=== PATIENT | female | born 1980 | race African-American/Black ===

== ENCOUNTER 2018-04-30 22:47 | Emergency (ER) | payer MEDICAID ==
[~2018-04-30] VITALS: Ht 172.7 cm; Wt 93.9 kg
[~2018-04-30 22:47] MED LIST: BACL0.13 PO; GLIM4TAB42 OR; JANUVIA PO; OMEP20TA44; TRAMADOL PO
[2018-04-30 23:06] VITALS: BP 135/87
[2018-05-01 01:25] LABS: Mean Corpuscular Hgb Conc. 33.9 g/dL (32.0-36.0); Monocytes # (auto) 0.8 uL
[2018-05-01 01:27] LABS: Basophils # (auto) 0.2 uL; Basophils % (auto) 0.9 % (0.0-2.0); Eosinophils # (auto) 0.3 uL; Eosinophils % (auto) 1.5 % (0.0-7.0); Hematocrit 48.3 % (36.0-46.0); Hemoglobin 16.4 g/dL (12.2-16.2); Lymphocytes # (auto) 5.2 uL; Lymphocytes % (auto) 30.1 % (10.0-50.0); Mean Corpuscular Volume 79.7 fL (80.0-100.0); Monocytes % (auto) 4.8 % (0.0-12.0); Neutrophils # (auto) 10.7 uL; Neutrophils % (auto) 62.7 % (37.0-80.0); Platelet Count (auto) 326 10^3/uL (140-450); Red Blood Cells 6.06 10^6/uL (4.0-5.20); White Blood Cell 17.1 10^3/uL (4.4-10.8)
[2018-05-01 01:42] LABS: Albumin 3.8 g/dL (3.4-5.0); BUN/Creatinine Ratio 8.1; Calcium 9.2 mg/dL (8.5-10.1)
[2018-05-01 01:46] LABS: Bilirubin, Total 0.7 mg/dL (0.2-1.0); Total Protein 8.3 g/dL (6.4-8.2)
== END 2018-05-01 04:18 | disposition left against medical advice (07) ==
LOC: ER 22:47
DX: L02.31 Cutaneous abscess of buttock (principal); Z53.21 Procedure and treatment not carried out due to patient leaving prior to being seen by health care provider
CPT/HCPCS: 36415; 80053; 85025

== ENCOUNTER 2019-12-04 22:05 | Emergency (ER) | payer MEDICAID ==
[~2019-12-04] VITALS: Ht 172.7 cm; Wt 78.9 kg
[2019-12-04 22:47] VITALS: BP 132/87
[2019-12-04 23:23] LABS: Basophils # (auto) 0.1 10 ^3/uL (0-0.2); Eosinophils # (auto) 0.2 10 ^3/uL (0-0.8); Eosinophils % (auto) 1.6 % (0.0-7.0); Lymphocytes % (auto) 41.6 % (10.0-50.0); Nucleated Red Blood Cells % 0.1 %
[2019-12-04 23:24] LABS: Basophils % (auto) 0.9 % (0.0-2.0); Hematocrit 42.8 % (36.0-46.0); Hemoglobin 14.9 g/dL (12.2-16.2); Lymphocytes # (auto) 5.3 10 ^3/uL (0.4-5.4); Mean Corpuscular Hemoglobin 27.4 pg (28.0-32.0); Mean Corpuscular Hgb Conc. 34.7 g/dL (32.0-36.0); Monocytes # (auto) 0.5 10 ^3/uL (0-1.3); Monocytes % (auto) 4.1 % (0.0-12.0); Neutrophils # (auto) 6.6 10 ^3/uL (1.6-8.6); Neutrophils % (auto) 51.8 % (37.0-80.0); Platelet Count (auto) 326 10^3/uL (140-450); Red Blood Cells 5.42 10^6/uL (4.0-5.20); Red Cell Distribution Width 14.9 % (11.8-14.3); White Blood Cell 12.7 10^3/uL (4.4-10.8)
[2019-12-04 23:41] LABS: Albumin 3.4 g/dL (3.4-5.0); Anion Gap 9 (5-15); Blood Urea Nitrogen 6 mg/dL (7-18); Calcium 8.8 mg/dL (8.5-10.1); Carbon Dioxide 22 mmol/L (21-32); Chloride 107 mmol/L (98-107); Glucose 251 mg/dL (74-106); Potassium 3.6 mmol/L (3.5-5.1); Sodium 138 mmol/L (136-145)
[2019-12-04 23:47] LABS: Alanine Aminotransferase 33 U/L (13-56); Alkaline Phosphatase 98 U/L (45-117); Aspartate Aminotransferase 25 U/L (15-37); BUN/Creatinine Ratio 8.3; Bilirubin, Total 0.4 mg/dL (0.2-1.0); GFR African American 117 mL/min; GFR Non-African American 96 mL/min; Total Protein 7.3 g/dL (6.4-8.2)
== END 2019-12-05 00:03 | disposition left against medical advice (07) ==
LOC: EDBD 22:05 → ER 22:09
DX: R55 Syncope and collapse (principal); Z53.21 Procedure and treatment not carried out due to patient leaving prior to being seen by health care provider
CPT/HCPCS: 36415; 80053; 83880; 84484; 85025; 93005

== ENCOUNTER → 2019-12-14 | Emergency (ER) | payer MEDICAID ==
[~2019-12-14] VITALS: Ht 172.7 cm; Wt 65.8 kg
[~2019-12-14] MED LIST changes: +ACCU-CHEK COMFORT CURVE STRIP VI SCH; +ACETAMINOPHEN 325 MG TAB PO PRN; +ALBUMIN 5% 250 ML IV ONE; +DEXTROSE (50%) 50ML SYRG IV PRN; +FAMOTIDINE 20 MG TAB PO SCH; +HYDROcodone-ACET 5/325MG TAB PO PRN; +InsuLIN REG 1unit/0.01ml Soln (100units/ml) SC SCH; +MORPHINE SULF INJ 2 MG/ML SYRINGE 1ML IV ONE; +MORPHINE SULF INJ 2 MG/ML SYRINGE 1ML IV PRN; +NITROGLYCERIN 0.4 MG SL TAB SL PRN; +ONDANSETRON HCL 4 MG/2 ML VIAL IV ONE; +ONDANSETRON HCL 4 MG/2 ML VIAL IV PRN; +SODIUM CHLORIDE 0.9% 1,000 ML IV SCH; +SODIUM CHLORIDE 0.9% 1,000 ML IVB ONE; +TEMAZEPAM 15 MG CAP PO PRN
[2019-12-14 16:42] LABS: Basophils # (auto) 0.1 10 ^3/uL (0-0.2); Basophils % (auto) 0.8 % (0.0-2.0); Hemoglobin 14.8 g/dL (12.2-16.2); Lymphocytes # (auto) 4.1 10 ^3/uL (0.4-5.4); Monocytes # (auto) 0.6 10 ^3/uL (0-1.3); Neutrophils # (auto) 7.4 10 ^3/uL (1.6-8.6); Nucleated Red Blood Cells % 0.1 %
[2019-12-14 16:44] LABS: Eosinophils # (auto) 0.2 10 ^3/uL (0-0.8); Eosinophils % (auto) 1.4 % (0.0-7.0); Hematocrit 44.6 % (36.0-46.0); Mean Corpuscular Hemoglobin 26.2 pg (28.0-32.0); Mean Corpuscular Hgb Conc. 33.3 g/dL (32.0-36.0); Mean Corpuscular Volume 78.7 fL (80.0-100.0); Monocytes % (auto) 5.1 % (0.0-12.0); Neutrophils % (auto) 59.7 % (37.0-80.0); Platelet Count (auto) 337 10^3/uL (140-450); Red Blood Cells 5.67 10^6/uL (4.0-5.20); Red Cell Distribution Width 14.7 % (11.8-14.3); White Blood Cell 12.5 10^3/uL (4.4-10.8)
[2019-12-14 17:05] LABS: Alanine Aminotransferase 46 U/L (13-56); Albumin 3.2 g/dL (3.4-5.0); Anion Gap 12 (5-15); Aspartate Aminotransferase 36 U/L (15-37); BUN/Creatinine Ratio 14.1; Blood Urea Nitrogen 9 mg/dL (7-18); Calcium 8.8 mg/dL (8.5-10.1); Carbon Dioxide 19 mmol/L (21-32); Chloride 104 mmol/L (98-107); GFR African American 134 mL/min; GFR Non-African American 110 mL/min; Glucose 203 mg/dL (74-106); Sodium 135 mmol/L (136-145)
[2019-12-14 17:10] LABS: Alkaline Phosphatase 100 U/L (45-117); Bilirubin, Total 0.8 mg/dL (0.2-1.0); Total Protein 7.5 g/dL (6.4-8.2)
[2019-12-14 20:43] VITALS: BP 92/55
[2019-12-14 22:46] LABS: Urine Bacteria FEW /hpf (None Seen); Urine Blood Negative /uL (Negative); Urine Mucus FEW (None Seen); Urine Specific Gravity 1.027 (1.001-1.035); Urine WBC 2 /hpf (0 - 5)
== END | disposition left against medical advice (07) ==
LOC: EDUNIT# 15:41 → EDBD 15:51 → ER 15:51 → TELE 15:52 → UNDOADMIN 15:52
DX: R55 Syncope and collapse (principal); M54.9 Dorsalgia, unspecified; R11.0 Nausea; E11.9 Type 2 diabetes mellitus without complications; I10 Essential (primary) hypertension
CPT/HCPCS: 36415; 70450; 71045; 80053; 81001; 83735; 84484; 85025; 96361; 96374; 96375; 99285; J2270; J2405

== ENCOUNTER 2022-10-02 10:53 | Inpatient (IN) | payer MEDICAID ==
[~2022-10-02] VITALS: Ht 172.7 cm; Wt 81.1 kg
[~2022-10-02 10:53] MED LIST changes: -ACCU-CHEK COMFORT CURVE STRIP VI SCH; -ACETAMINOPHEN 325 MG TAB PO PRN; -ALBUMIN 5% 250 ML IV ONE; -BACL0.13 PO; +BACLPOW PO; -DEXTROSE (50%) 50ML SYRG IV PRN; -FAMOTIDINE 20 MG TAB PO SCH; -HYDROcodone-ACET 5/325MG TAB PO PRN; -InsuLIN REG 1unit/0.01ml Soln (100units/ml) SC SCH; -MORPHINE SULF INJ 2 MG/ML SYRINGE 1ML IV ONE; -MORPHINE SULF INJ 2 MG/ML SYRINGE 1ML IV PRN; -NITROGLYCERIN 0.4 MG SL TAB SL PRN; -ONDANSETRON HCL 4 MG/2 ML VIAL IV ONE; -ONDANSETRON HCL 4 MG/2 ML VIAL IV PRN; -SODIUM CHLORIDE 0.9% 1,000 ML IV SCH; -SODIUM CHLORIDE 0.9% 1,000 ML IVB ONE; -TEMAZEPAM 15 MG CAP PO PRN
[2022-10-02] MEDS ORDERED: MORPHINE SULFATE 4 MG/ML SYR/VIAL IV ONE (11:45)
[2022-10-02] MEDS ORDERED: SODIUM CHLORIDE 0.9% 1,000 ML IVB ONE (11:45)
[2022-10-02] MEDS ORDERED: ONDANSETRON HCL 4 MG/2 ML VIAL IV ONE (11:45)
[2022-10-02 12:43] LABS: Urine Bacteria FEW /hpf (None Seen); Urine Blood Negative /uL (Negative); Urine Hyaline Cast FEW /lpf (0 - 2); Urine Mucus FEW (None Seen); Urine Specific Gravity 1.035 (1.001-1.035); Urine WBC 32 /hpf (0 - 5)
[2022-10-02 12:46] LABS: Basophils # (auto) 0.1 10 ^3/uL (0-0.2); Basophils % (auto) 0.8 % (0.0-2.0); Eosinophils # (auto) 0.5 10 ^3/uL (0-0.8); Mean Corpuscular Volume 79.9 fL (80.0-100.0); Monocytes # (auto) 0.7 10 ^3/uL (0-1.3); Nucleated Red Blood Cells % 0.1 %
[2022-10-02 12:48] LABS: Hematocrit 44.5 % (36.0-46.0); Hemoglobin 14.4 g/dL (12.2-16.2); Lymphocytes # (auto) 4.5 10 ^3/uL (0.4-5.4); Lymphocytes % (auto) 26.5 % (10.0-50.0); Mean Corpuscular Hemoglobin 25.8 pg (28.0-32.0); Mean Corpuscular Hgb Conc. 32.3 g/dL (32.0-36.0); Neutrophils # (auto) 11.2 10 ^3/uL (1.6-8.6); Neutrophils % (auto) 65.7 % (37.0-80.0); Red Blood Cells 5.57 10^6/uL (4.0-5.20); Red Cell Distribution Width 14.8 % (11.8-14.3)
[2022-10-02 13:09] LABS: Albumin 3.7 g/dL (3.4-5.0); Calcium 8.5 mg/dL (8.5-10.1); Magnesium 2.3 mg/dL (1.6-2.6); Potassium 4.8 mmol/L (3.5-5.1)
[2022-10-02 13:13] LABS: Bilirubin, Total 0.4 mg/dL (0.2-1.0); Total Protein 7.2 g/dL (6.4-8.2)
[2022-10-02] MEDS ORDERED: cefTRIAXone 1GM/50ML D5W 50 ML IV ONE (13:45)
[2022-10-02] MEDS ORDERED: SODIUM CHLORIDE 0.9% 500 ML IV ONE (13:45)
[2022-10-02] MEDS ORDERED: InsuLIN REG 1unit/0.01ml Soln (100units/ml) IV ONE (14:30)
[2022-10-02] MEDS ORDERED: DOCUSATE SOD 100 MG CAP PO PRN (15:15)
[2022-10-02] MEDS: SODIUM CHLORIDE 0.9% 1,000 ML IV SCH (15:25)
[2022-10-02] MEDS ORDERED: DEXTROSE (50%) 50ML SYRG IV PRN (15:30)
[2022-10-02] MEDS: ACCU-CHEK COMFORT CURVE STRIP VI SCH ×2 (17:00→22:14)
[2022-10-02] MEDS: InsuLIN REG 1unit/0.01ml Soln (100units/ml) SC SCH ×2 (17:00→22:21)
[2022-10-03 04:57] LABS: Basophils # (auto) 0.1 10 ^3/uL (0-0.2); Eosinophils # (auto) 0.4 10 ^3/uL (0-0.8); Lymphocytes # (auto) 3.4 10 ^3/uL (0.4-5.4); Monocytes # (auto) 0.6 10 ^3/uL (0-1.3)
[2022-10-03 04:59] LABS: Basophils % (auto) 0.7 % (0.0-2.0); Eosinophils % (auto) 3.2 % (0.0-7.0); Hematocrit 38.4 % (36.0-46.0); Hemoglobin 12.7 g/dL (12.2-16.2); Lymphocytes % (auto) 28.9 % (10.0-50.0); Mean Corpuscular Hemoglobin 25.8 pg (28.0-32.0); Mean Corpuscular Hgb Conc. 32.9 g/dL (32.0-36.0); Mean Corpuscular Volume 78.4 fL (80.0-100.0); Neutrophils # (auto) 7.3 10 ^3/uL (1.6-8.6); Neutrophils % (auto) 62.2 % (37.0-80.0); Red Cell Distribution Width 14.4 % (11.8-14.3); White Blood Cell 11.8 10^3/uL (4.4-10.8)
[2022-10-03 05:12] LABS: Albumin 3.3 g/dL (3.4-5.0); BUN/Creatinine Ratio 19.3; Calcium 8.9 mg/dL (8.5-10.1); Potassium 4.1 mmol/L (3.5-5.1)
[2022-10-03 05:14] LABS: Bilirubin, Total 0.3 mg/dL (0.2-1.0)
[2022-10-03] MEDS: MORPHINE SULFATE INJ 2 MG/ml SYRG IV PRN ×3 (06:21→16:50)
[2022-10-03] MEDS: ACCU-CHEK COMFORT CURVE STRIP VI SCH ×4 (06:57→22:28)
[2022-10-03] MEDS: InsuLIN REG 1unit/0.01ml Soln (100units/ml) SC SCH ×4 (06:58→22:28)
[2022-10-03] MEDS: SODIUM CHLORIDE 0.9% 1,000 ML IV SCH ×3 (07:55→17:10)
[2022-10-03] MEDS ORDERED: PREG200C59 PO (09:10)
[2022-10-03] MEDS ORDERED: OMEP-260 PO (09:10)
[2022-10-03] MEDS ORDERED: CLON-853 PO (09:10)
[2022-10-03] MEDS ORDERED: BACL10TA PO (09:10)
[2022-10-03] MEDS ORDERED: MORP15TA PO (09:10)
[2022-10-03] MEDS: cefTRIAXone 1GM/50ML D5W 50 ML IV SCH (09:15)
[2022-10-03] MEDS ORDERED: PANTOPRAZOLE 40 MG/10 ML VIAL INJ IV SCH (10:00)
[2022-10-03] MEDS: ENOXAPARIN SOD 40 MG/0.4 ML SYRINGE SC SCH (10:28)
[2022-10-03] MEDS: ONDANSETRON HCL 4 MG/2 ML VIAL IV PRN ×2 (10:29→16:50)
[2022-10-03] MEDS ORDERED: clonazePAM 0.5 MG TAB PO PRN ×2 (12:30→22:00)
[2022-10-03 16:22] VITALS: BP 145/86
[2022-10-03 16:25] VITALS: BP 145/86
[2022-10-03 17:00] VITALS: BP 145/86
[2022-10-03] MEDS: BACLOFEN 10 MG TAB PO SCH ×2 (17:05→22:22)
[2022-10-03 22:00] VITALS: BP 125/62
[2022-10-03] MEDS ORDERED: INSULIN LANTUS (GLARGINE) 1 /0.01ml (100units/ml) SC SCH (22:00)
[2022-10-03] MEDS ORDERED: PREGABALIN 200 MG PO SCH (22:00)
[2022-10-04] MEDS: MORPHINE SULFATE INJ 2 MG/ml SYRG IV PRN (01:58)
[2022-10-04 05:00] VITALS: BP 122/77
[2022-10-04] MEDS: BACLOFEN 10 MG TAB PO SCH ×2 (05:22→14:01)
[2022-10-04] MEDS: ACCU-CHEK COMFORT CURVE STRIP VI SCH ×2 (05:22→11:30)
[2022-10-04] MEDS: InsuLIN REG 1unit/0.01ml Soln (100units/ml) SC SCH ×2 (05:41→11:30)
[2022-10-04] MEDS ORDERED: MORPHINE SULFATE INJ 2 MG/ml SYRG IV PRN (06:15)
[2022-10-04] MEDS ORDERED: HYDROcodone-ACET 5/325MG TAB PO PRN (06:15)
[2022-10-04 06:37] LABS: Basophils # (auto) 0.1 10 ^3/uL (0-0.2); Eosinophils # (auto) 0.2 10 ^3/uL (0-0.8); Eosinophils % (auto) 2.6 % (0.0-7.0); Lymphocytes % (auto) 34.8 % (10.0-50.0); Monocytes # (auto) 0.5 10 ^3/uL (0-1.3)
[2022-10-04 06:42] LABS: Basophils % (auto) 0.8 % (0.0-2.0); Hematocrit 37.1 % (36.0-46.0); Hemoglobin 12.6 g/dL (12.2-16.2); Lymphocytes # (auto) 3.1 10 ^3/uL (0.4-5.4); Mean Corpuscular Hemoglobin 26.4 pg (28.0-32.0); Mean Corpuscular Volume 77.6 fL (80.0-100.0); Monocytes % (auto) 5.4 % (0.0-12.0); Neutrophils % (auto) 56.4 % (37.0-80.0); Nucleated Red Blood Cells % 0.1 %; Red Blood Cells 4.78 10^6/uL (4.0-5.20); Red Cell Distribution Width 14.5 % (11.8-14.3); White Blood Cell 8.9 10^3/uL (4.4-10.8)
[2022-10-04] MEDS: ENOXAPARIN SOD 40 MG/0.4 ML SYRINGE SC SCH (08:48)
[2022-10-04] MEDS: cefTRIAXone 1GM/50ML D5W 50 ML IV SCH (08:49)
[2022-10-04 09:00] VITALS: BP_SYST 123; BP_SYST 128; BP_DIAS 75; BP_DIAS 79
[2022-10-04] MEDS ORDERED: PREGABALIN 25 MG CAP PO SCH (10:00)
[2022-10-04] MEDS ORDERED: MORPHINE SULF 15mg ER tab PO SCH (10:00)
[2022-10-04] MEDS ORDERED: CIPR500T4 PO (14:15)
[2022-10-04] MEDS ORDERED: INSUINJ37 SC (14:15)
[2022-10-04 15:04] VITALS: BP 123/75
== END 2022-10-04 16:14 | disposition home or self-care (01) | DRG 463 ==
LOC: ER 10:53 → OVERFLOW 15:15 → CENTRAL 10-03 16:00
PROVIDERS: ADMIT Nurse Practitioner Family; ATTEND Internal Medicine
DX: N10 Acute pyelonephritis (principal); E11.41 Type 2 diabetes mellitus with diabetic mononeuropathy; K76.0 Fatty (change of) liver, not elsewhere classified; Z20.822 Contact with and (suspected) exposure to COVID-19; I10 Essential (primary) hypertension; Z88.8 Allergy status to other drugs, medicaments and biological substances; Z88.6 Allergy status to analgesic agent; Z83.3 Family history of diabetes mellitus; Z82.49 Family history of ischemic heart disease and other diseases of the circulatory system; Z90.49 Acquired absence of other specified parts of digestive tract
CPT/HCPCS: 36415; 74176; 80048; 80053; 81001; 82010; 82962; 83690; 83735; 85025; 87086; 87426; 93005; 96365; C9113; G0378; J0696; J1815; J2405

== ENCOUNTER 2022-12-25 12:33 | Inpatient (IN) | payer MEDICAID ==
[~2022-12-25] VITALS: Ht 172.7 cm; Wt 91.0 kg
[~2022-12-25 12:33] MED LIST changes: +BACL10TA PO; +CIPR500T4 PO; +CLON-853 PO; +INSUINJ37 SC; +MORP15TA PO; +OMEP-260 PO; +PREG200C59 PO
[2022-12-25 14:30] LABS: Basophils # (auto) 0.1 10 ^3/uL (0-0.2); Basophils % (auto) 0.8 % (0.0-2.0); Eosinophils # (auto) 0.5 10 ^3/uL (0-0.8); Hematocrit 41.1 % (36.0-46.0); Lymphocytes # (auto) 4.6 10 ^3/uL (0.4-5.4); Mean Corpuscular Hemoglobin 22.7 pg (28.0-32.0); Mean Corpuscular Volume 72.6 fL (80.0-100.0); Monocytes # (auto) 0.7 10 ^3/uL (0-1.3); Monocytes % (auto) 5.1 % (0.0-12.0)
[2022-12-25 14:33] LABS: Hemoglobin 12.8 g/dL (12.2-16.2); Lymphocytes % (auto) 34.5 % (10.0-50.0); Mean Corpuscular Hgb Conc. 31.2 g/dL (32.0-36.0); Neutrophils # (auto) 7.4 10 ^3/uL (1.6-8.6); Neutrophils % (auto) 55.6 % (37.0-80.0); Red Blood Cells 5.67 10^6/uL (4.0-5.20); Red Cell Distribution Width 15.9 % (11.8-14.3); White Blood Cell 13.3 10^3/uL (4.4-10.8)
[2022-12-25 14:42] LABS: Albumin 3.5 g/dL (3.4-5.0); Calcium 8.8 mg/dL (8.5-10.1); Potassium 4.1 mmol/L (3.5-5.1)
[2022-12-25 14:44] LABS: INR 0.98 (0.9-1.15); Partial Thromboplastin Time 29.8 sec (24.6-33.4)
[2022-12-25 14:47] LABS: BUN/Creatinine Ratio 13.2 (10.0-20.0); Bilirubin, Total 0.4 mg/dL (0.2-1.0); Total Protein 7.5 g/dL (6.4-8.2)
[2022-12-25] MEDS ORDERED: cefTRIAXone 1GM/50ML D5W 50 ML IV ONE (15:30)
[2022-12-25] MEDS ORDERED: LACTATED RINGER'S 1,000 ML IV ONE (15:30)
[2022-12-25 17:02] LABS: Urine Bacteria NONE SEEN /hpf (None Seen); Urine Blood Negative /uL (Negative); Urine Mucus FEW (None Seen); Urine Specific Gravity 1.048 (1.001-1.035); Urine WBC 3 /hpf (0 - 5)
[2022-12-25] MEDS ORDERED: KETOROLAC TROMETH 30 MG/ML 1ML VIAL IV ONE (17:30)
[2022-12-25] MEDS ORDERED: KETOROLAC TROMETH 30 MG/ML 1ML VIAL IV PRN (18:00)
[2022-12-25] MEDS ORDERED: DEXTROSE (50%) 50ML SYRG IV PRN (18:15)
[2022-12-25] MEDS ORDERED: ACETAMINOPHEN 325 MG TAB PO PRN (18:15)
[2022-12-25] MEDS ORDERED: clonazePAM 0.5 MG TAB PO PRN (18:15)
[2022-12-25 21:35] VITALS: BP 101/63
[2022-12-25] MEDS: BACLOFEN 10 MG TAB PO SCH (21:48)
[2022-12-25] MEDS: ACCU-CHEK COMFORT CURVE STRIP VI SCH (21:59)
[2022-12-25 22:00] VITALS: BP 101/63
[2022-12-25] MEDS: GLIMEPIRIDE 2 MG TAB PO SCH (22:00)
[2022-12-25] MEDS: InsuLIN REG 1unit/0.01ml Soln (100units/ml) SC SCH (22:01)
[2022-12-25] MEDS: PREGABALIN 25 MG CAP PO SCH (22:07)
[2022-12-25] MEDS: SODIUM CHLORIDE 0.9% 1,000 ML IV SCH (23:07)
[2022-12-26] MEDS: BACLOFEN 10 MG TAB PO SCH ×3 (01:52→19:08)
[2022-12-26 05:00] VITALS: BP 117/68
[2022-12-26 05:53] LABS: Basophils # (auto) 0.1 10 ^3/uL (0-0.2); Hemoglobin 11.1 g/dL (12.2-16.2); Lymphocytes # (auto) 4.4 10 ^3/uL (0.4-5.4); Monocytes # (auto) 0.8 10 ^3/uL (0-1.3)
[2022-12-26 05:57] LABS: Basophils % (auto) 0.9 % (0.0-2.0); Eosinophils # (auto) 0.5 10 ^3/uL (0-0.8); Eosinophils % (auto) 3.8 % (0.0-7.0); Hematocrit 34.6 % (36.0-46.0); Lymphocytes % (auto) 31.2 % (10.0-50.0); Mean Corpuscular Hemoglobin 22.8 pg (28.0-32.0); Mean Corpuscular Hgb Conc. 32.2 g/dL (32.0-36.0); Mean Corpuscular Volume 70.9 fL (80.0-100.0); Monocytes % (auto) 5.4 % (0.0-12.0); Neutrophils # (auto) 8.3 10 ^3/uL (1.6-8.6); Neutrophils % (auto) 58.7 % (37.0-80.0); Red Blood Cells 4.88 10^6/uL (4.0-5.20); Red Cell Distribution Width 16.1 % (11.8-14.3); White Blood Cell 14.2 10^3/uL (4.4-10.8)
[2022-12-26 06:10] LABS: Albumin 2.8 g/dL (3.4-5.0); Calcium 8.4 mg/dL (8.5-10.1); Potassium 3.4 mmol/L (3.5-5.1)
[2022-12-26 06:13] LABS: BUN/Creatinine Ratio 14.8 (10.0-20.0)
[2022-12-26 06:15] LABS: Bilirubin, Total 0.4 mg/dL (0.2-1.0); Total Protein 6.6 g/dL (6.4-8.2)
[2022-12-26] MEDS: ACCU-CHEK COMFORT CURVE STRIP VI SCH ×4 (06:16→22:00)
[2022-12-26] MEDS: InsuLIN REG 1unit/0.01ml Soln (100units/ml) SC SCH ×4 (06:17→21:39)
[2022-12-26] MEDS ORDERED: FENT25DI2 TD (06:41)
[2022-12-26] MEDS ORDERED: POTASSIUM CHL 20 Meq TABLET PO ONE (07:15)
[2022-12-26] MEDS: SODIUM CHLORIDE 0.9% 1,000 ML IV SCH ×2 (07:31→21:11)
[2022-12-26] MEDS: HYDROcodone-ACET 5/325MG TAB PO PRN ×2 (07:44→19:08)
[2022-12-26 09:00] VITALS: BP 119/78
[2022-12-26] MEDS: PREGABALIN 25 MG CAP PO SCH ×2 (11:01→21:31)
[2022-12-26] MEDS: GLIMEPIRIDE 2 MG TAB PO SCH ×2 (11:04→21:32)
[2022-12-26] MEDS: PANTOPRAZOLE 40 MG TAB PO SCH (11:04)
[2022-12-26] MEDS: cefTRIAXone 1GM/50ML D5W 50 ML IV SCH (11:04)
[2022-12-26] MEDS: ENOXAPARIN SOD 40 MG/0.4 ML SYRINGE SC SCH (11:08)
[2022-12-26 13:00] VITALS: BP 129/82
[2022-12-26 17:00] VITALS: BP 129/87
[2022-12-26 22:00] VITALS: BP 116/69
[2022-12-27] MEDS: BACLOFEN 10 MG TAB PO SCH ×2 (02:02→09:37)
[2022-12-27 05:00] VITALS: BP 122/70
[2022-12-27] MEDS: InsuLIN REG 1unit/0.01ml Soln (100units/ml) SC SCH ×3 (06:35→17:00)
[2022-12-27] MEDS: ACCU-CHEK COMFORT CURVE STRIP VI SCH ×3 (06:35→17:00)
[2022-12-27 09:10] VITALS: BP 132/79
[2022-12-27] MEDS: cefTRIAXone 1GM/50ML D5W 50 ML IV SCH (09:35)
[2022-12-27] MEDS: PANTOPRAZOLE 40 MG TAB PO SCH (09:36)
[2022-12-27] MEDS: PREGABALIN 25 MG CAP PO SCH (09:36)
[2022-12-27] MEDS: GLIMEPIRIDE 2 MG TAB PO SCH (09:41)
[2022-12-27] MEDS: ENOXAPARIN SOD 40 MG/0.4 ML SYRINGE SC SCH (09:42)
[2022-12-27] MEDS: SODIUM CHLORIDE 0.9% 1,000 ML IV SCH (09:43)
[2022-12-27] MEDS ORDERED: MORPHINE SULFATE 4 MG/ML SYR/VIAL IV PRN (10:45)
[2022-12-27 12:40] VITALS: BP 117/74
[2022-12-27] MEDS ORDERED: clonazePAM 0.5 MG TAB PO SCH (14:00)
[2022-12-27 17:35] VITALS: BP 124/75
[2022-12-27] MEDS ORDERED: OXcarbazepine 300 MG TAB PO SCH (22:00)
== END 2022-12-27 17:40 | disposition left against medical advice (07) | DRG 720 ==
LOC: ER 12:33 → WEST WING 18:08
PROVIDERS: ADMIT Nurse Practitioner Family; ATTEND Family Medicine
DX: A41.9 Sepsis, unspecified organism (principal); D64.9 Anemia, unspecified; E11.9 Type 2 diabetes mellitus without complications; G89.4 Chronic pain syndrome; I10 Essential (primary) hypertension; Z53.29 Procedure and treatment not carried out because of patient's decision for other reasons; Z20.822 Contact with and (suspected) exposure to COVID-19; Z79.891 Long term (current) use of opiate analgesic; Z87.442 Personal history of urinary calculi; Z83.3 Family history of diabetes mellitus; Z82.49 Family history of ischemic heart disease and other diseases of the circulatory system; Z88.6 Allergy status to analgesic agent; Z88.8 Allergy status to other drugs, medicaments and biological substances; Z90.49 Acquired absence of other specified parts of digestive tract; N10 Acute pyelonephritis
CPT/HCPCS: 36415; 71045; 72131; 74176; 80053; 81001; 81025; 82962; 83036; 83690; 84484; 85025; 85379; 85610; 85730; 87040; 87077; 87086; 87186; 87426; 93005; 96361; 96365; 97110; 97116; 97163; 97530; G0378; J0696; J1815

== ENCOUNTER 2023-05-08 10:12 | Emergency (ER) | payer MEDICAID ==
[~2023-05-08] VITALS: Ht 172.7 cm; Wt 70.0 kg
[~2023-05-08 10:12] MED LIST changes: +APIX2.5T PO; -BACLPOW PO; -CIPR500T4 PO; +FENT25DI2 TD; -OMEP-260 PO; -TRAMADOL PO
[2023-05-08 10:49] VITALS: BP 120/65; PULSE 129; RESP 16; TEMP 98.6; O2SAT 96
[2023-05-08] MEDS ORDERED: CEPH500C PO (12:28)
== END 2023-05-08 12:34 | disposition home or self-care (01) ==
LOC: ER 10:12
DX: S76.012A Strain of muscle, fascia and tendon of left hip, initial encounter (principal); S90.821A Blister (nonthermal), right foot, initial encounter; E11.9 Type 2 diabetes mellitus without complications; Z86.2 Personal history of diseases of the blood and blood-forming organs and certain disorders involving the immune mechanism; Z90.49 Acquired absence of other specified parts of digestive tract; Z79.4 Long term (current) use of insulin; Z79.899 Other long term (current) drug therapy; Z88.8 Allergy status to other drugs, medicaments and biological substances; X50.1XXA Overexertion from prolonged static or awkward postures, initial encounter; Y93.89 Activity, other specified; Y92.89 Other specified places as the place of occurrence of the external cause; Y99.8 Other external cause status
CPT/HCPCS: 73502

== ENCOUNTER 2023-06-23 13:11 | Emergency (ER) | payer MEDICAID ==
[~2023-06-23] VITALS: Ht 172.7 cm; Wt 67.0 kg
[~2023-06-23 13:11] MED LIST changes: +CEPH500C PO
[2023-06-23 13:50] VITALS: BP 118/66; PULSE 120; RESP 24; TEMP 97.1; O2SAT 100
[2023-06-23] MEDS ORDERED: CEPH500C PO (15:00)
== END 2023-06-23 15:05 | disposition home or self-care (01) ==
LOC: ER 13:11
DX: S90.821A Blister (nonthermal), right foot, initial encounter (principal); X58.XXXA Exposure to other specified factors, initial encounter; Y93.89 Activity, other specified; Y92.89 Other specified places as the place of occurrence of the external cause; Y99.8 Other external cause status
CPT/HCPCS: 10140

== ENCOUNTER 2024-04-26 13:06 | Inpatient (IN) | payer MEDICAID ==
[~2024-04-26] VITALS: Ht 172.7 cm; Wt 87.0 kg
[2024-04-26 02:45] VITALS: BP 129/73; PULSE 84; RESP 20; TEMP 98.9; O2SAT 97
[~2024-04-26 13:06] MED LIST changes: +PREG200C36 PO; -PREG200C59 PO
[2024-04-26 14:17] LABS: Basophils # (auto) 0.1 10 ^3/uL (0-0.2); Eosinophils # (auto) 0.1 10 ^3/uL (0-0.8); Lymphocytes # (auto) 2.7 10 ^3/uL (0.4-5.4); Mean Corpuscular Hemoglobin 20.2 pg (28.0-32.0); Monocytes # (auto) 0.4 10 ^3/uL (0-1.3)
[2024-04-26] MEDS: HYDROmorphone HCL 2 MG/ML VL/or syr IV ONE ×2 (14:19→16:00)
[2024-04-26] MEDS: SODIUM CHLORIDE 0.9% 1,000 ML IVB ONE (14:20)
[2024-04-26] MEDS: ONDANSETRON HCL 4 MG/2 ML VIAL IV ONE (14:20)
[2024-04-26 14:22] LABS: Basophils % (auto) 1.2 % (0.0-2.0); Eosinophils % (auto) 0.9 % (0.0-7.0); Hematocrit 33.2 % (36.0-46.0); Lymphocytes % (auto) 29.4 % (10.0-50.0); Mean Corpuscular Hgb Conc. 30.2 g/dL (32.0-36.0); Mean Corpuscular Volume 66.8 fL (80.0-100.0); Monocytes % (auto) 4.8 % (0.0-12.0); Neutrophils # (auto) 5.9 10 ^3/uL (1.6-8.6); Neutrophils % (auto) 63.7 % (37.0-80.0); Red Blood Cells 4.98 10^6/uL (4.0-5.20); White Blood Cell 9.3 10^3/uL (4.4-10.8)
[2024-04-26 14:26] LABS: Red Cell Distribution Width 20.5 % (11.8-14.3)
[2024-04-26 14:28] VITALS: PULSE 82; RESP 18; O2SAT 95
[2024-04-26 14:34] LABS: Alanine Aminotransferase 20 U/L (7-40); Alkaline Phosphatase 116 U/L (46-116); Anion Gap 10 (5-15); Aspartate Aminotransferase 15 U/L (13-40); BUN/Creatinine Ratio 8.2 (10.0-20.0); Blood Urea Nitrogen 7 mg/dL (9-23); Carbon Dioxide 23 mmol/L (20-30); Chloride 106 mmol/L (98-107); Potassium 3.9 mmol/L (3.5-5.1); Sodium 139 mmol/L (136-145)
[2024-04-26 14:35] LABS: Albumin 3.9 g/dL (3.2-4.8); Bilirubin, Total 0.2 mg/dL (0.2-1.0); Total Protein 6.3 g/dL (5.7-8.2)
[2024-04-26 14:45] LABS: Glucose 578 mg/dL (74-106)
[2024-04-26 14:47] LABS: Platelet Estimate Increased
[2024-04-26 14:48] LABS: Anisocytosis Slight; Hypochromia Marked; INR 0.96 (0.9-1.15); Lactic Acid w/Reflex 5.1 mmol/L (0.4-2.0); Partial Thromboplastin Time 26.7 SEC (24.5-34.5); Prothrombin Time 10.2 sec (9.3-11.8)
[2024-04-26 15:04] LABS: Urine Bacteria None Seen /hpf (None Seen)
[2024-04-26 15:18] LABS: Urine Blood Negative /uL (Negative); Urine Clarity Clear (Clear); Urine Color Light-Yellow (Yellow); Urine Protein, UAD Negative (Negative); Urine Specific Gravity 1.039 (1.001-1.035); Urine Urobilinogen Normal (Negative); Urine WBC 1 /hpf (0 - 5); Urine pH 6.5 (5.0-9.0)
[2024-04-26] MEDS: SODIUM CHLORIDE 0.9% 1,000 ML IV ONE (15:21)
[2024-04-26] MEDS: PIPERACILLIN-TAZO 4.5GM 100 ML IV ONE (16:57)
[2024-04-26] MEDS ORDERED: DEXTROSE (50%) 50ML SYRG IV PRN (17:15)
[2024-04-26] MEDS: SODIUM CHLORIDE 0.9% 1,000 ML IV SCH (17:45)
[2024-04-26 21:45] VITALS: BP 129/73; PULSE 86; RESP 16; RESP 19; TEMP 97.9; O2SAT 98
[2024-04-26] MEDS: ACCU-CHEK COMFORT CURVE STRIP VI SCH (22:08)
[2024-04-26] MEDS: INSULIN LANTUS (GLARGINE) 1 /0.01ml (100units/ml) SC SCH (22:08)
[2024-04-26] MEDS: InsuLIN REG 1unit/0.01ml Soln (100units/ml) SC SCH (22:09)
[2024-04-26] MEDS: MORPHINE SULFATE INJ 2 MG/ml SYRG IV PRN (22:18)
[2024-04-26] MEDS ORDERED: AMIT-256 PO (22:31)
[2024-04-26] MEDS ORDERED: HYDR4TAB3 PO (22:32)
[2024-04-26] MEDS ORDERED: PRIM50TA5 PO (22:40)
[2024-04-26] MEDS ORDERED: PREG200C36 PO (22:40)
[2024-04-26] MEDS ORDERED: META5TAB PO (22:40)
[2024-04-26] MEDS ORDERED: INSU1INJ15 SC (22:41)
[2024-04-26 22:54] VITALS: BP 129/73; PULSE 86; RESP 19; TEMP 97.9; O2SAT 98
[2024-04-27 01:00] VITALS: BP 114/49; PULSE 86; RESP 20; TEMP 97.2; O2SAT 99
[2024-04-27] MEDS: TEMAZEPAM 15 MG CAP PO PRN (02:11)
[2024-04-27] MEDS: InsuLIN REG 1unit/0.01ml Soln (100units/ml) SC SCH (06:10)
[2024-04-27 06:46] LABS: Basophils # (auto) 0.1 10 ^3/uL (0-0.2); Basophils % (auto) 0.5 % (0.0-2.0); Eosinophils # (auto) 0.3 10 ^3/uL (0-0.8); Eosinophils % (auto) 2.1 % (0.0-7.0); Hematocrit 27.3 % (36.0-46.0); Hemoglobin 8.4 g/dL (12.2-16.2); Lymphocytes # (auto) 4.1 10 ^3/uL (0.4-5.4); Lymphocytes % (auto) 29.8 % (10.0-50.0); Mean Corpuscular Hgb Conc. 30.8 g/dL (32.0-36.0); Mean Corpuscular Volume 64.9 fL (80.0-100.0); Monocytes # (auto) 0.7 10 ^3/uL (0-1.3); Monocytes % (auto) 4.8 % (0.0-12.0); Neutrophils # (auto) 8.6 10 ^3/uL (1.6-8.6); Neutrophils % (auto) 62.8 % (37.0-80.0); Nucleated Red Blood Cells % 0.1 %; Red Blood Cells 4.21 10^6/uL (4.0-5.20); White Blood Cell 13.6 10^3/uL (4.4-10.8)
[2024-04-27 06:50] LABS: Alanine Aminotransferase 18 U/L (7-40); Alkaline Phosphatase 99 U/L (46-116); Anion Gap 11 (5-15); Calcium 8.6 mg/dL (8.7-10.4); Carbon Dioxide 20 mmol/L (20-30); Chloride 107 mmol/L (98-107); Glucose 248 mg/dL (74-106); Potassium 3.4 mmol/L (3.5-5.1); Sodium 138 mmol/L (136-145)
[2024-04-27 06:52] LABS: Albumin 3.3 g/dL (3.2-4.8); Aspartate Aminotransferase 17 U/L (13-40); Bilirubin, Total 0.2 mg/dL (0.2-1.0); Total Protein 5.4 g/dL (5.7-8.2)
[2024-04-27 07:04] LABS: BUN/Creatinine Ratio 8.5 (10.0-20.0); Blood Urea Nitrogen < 5 mg/dL (9-23)
[2024-04-27 08:00] VITALS: PULSE 92; RESP 18; O2SAT 96
[2024-04-27] MEDS ORDERED: OXCA300T50 (08:02)
[2024-04-27 08:33] VITALS: BP 131/70; PULSE 77; RESP 21; TEMP 98.4; O2SAT 96
[2024-04-27] MEDS: clonazePAM 0.5 MG TAB PO SCH (08:38)
[2024-04-27] MEDS: POTASSIUM CHL 20 Meq TABLET PO ONE (08:39)
[2024-04-27] MEDS: SODIUM CHLORIDE 0.9% 1,000 ML IV SCH (08:41)
[2024-04-27 08:51] LABS: Amphetamine Screen, Urine Neg (NEGATIVE); Barbiturate Scree,Urine Neg (NEGATIVE); Benzodiazephine Screen, Urine Neg (NEGATIVE); Cannabinoid Screen, Urine Neg (NEGATIVE); Cocaine Screen, Urine Neg (NEGATIVE); Opiate Scree,Urine Neg (NEGATIVE); Phencyclidine Screen, Urine Neg (NEGATIVE)
[2024-04-27] MEDS: PANTOPRAZOLE 40 MG/10 ML VIAL INJ IV SCH (09:29)
[2024-04-27] MEDS: PRIMIDONE 50 MG TAB PO SCH (09:29)
[2024-04-27] MEDS: OXcarbazepine 300 MG TAB PO SCH (09:30)
[2024-04-27] MEDS: ENOXAPARIN SOD 40 MG/0.4 ML SYRINGE SC SCH (09:30)
[2024-04-27] MEDS: HYDROcodone-ACET 5/325MG TAB PO PRN (09:31)
[2024-04-27] MEDS: DOCUSATE SOD 100 MG CAP PO PRN (09:31)
[2024-04-27 13:03] VITALS: BP 108/52; PULSE 84; RESP 20; TEMP 97.9; O2SAT 96
[2024-04-27] MEDS: ONDANSETRON HCL 4 MG/2 ML VIAL IV PRN (15:48)
[2024-04-27 20:00] VITALS: RESP 18
[2024-04-27 21:00] VITALS: BP 125/71; PULSE 94; RESP 20; TEMP 98.2; O2SAT 98
[2024-04-27] MEDS: AMITRIPTYLINE HCL 25 MG TAB PO SCH (21:27)
[2024-04-27] MEDS: PREGABALIN 25 MG CAP PO SCH (21:27)
[2024-04-28 05:00] VITALS: BP 114/69; PULSE 98; RESP 18; TEMP 98; O2SAT 93
[2024-04-28 08:00] VITALS: PULSE 92; RESP 18; O2SAT 96
[2024-04-28 08:49] VITALS: BP 107/55; PULSE 92; RESP 20; TEMP 98.2; O2SAT 91
[2024-04-28 13:00] VITALS: BP 111/69; PULSE 92; RESP 20; TEMP 100.1; O2SAT 91
[2024-04-28] MEDS ORDERED: AZIT-43 PO (13:03)
== END 2024-04-28 17:08 | disposition home or self-care (01) | DRG 203 ==
LOC: ER 13:10 → OVERFLOW 17:07 → CENTRAL 21:48
PROVIDERS: ADMIT Nurse Practitioner; ATTEND Nurse Practitioner
DX: M94.0 Chondrocostal junction syndrome [Tietze] (principal); E87.20 Acidosis, unspecified; R56.9 Unspecified convulsions; E11.65 Type 2 diabetes mellitus with hyperglycemia; F17.210 Nicotine dependence, cigarettes, uncomplicated; F32.A Depression, unspecified; F41.9 Anxiety disorder, unspecified; F11.20 Opioid dependence, uncomplicated; Z88.8 Allergy status to other drugs, medicaments and biological substances; Z88.6 Allergy status to analgesic agent; Z91.041 Radiographic dye allergy status; Z90.49 Acquired absence of other specified parts of digestive tract; Z82.49 Family history of ischemic heart disease and other diseases of the circulatory system; Z83.3 Family history of diabetes mellitus; Z82.3 Family history of stroke; Z84.1 Family history of disorders of kidney and ureter
CPT/HCPCS: 36415; 71101; 78582; 80053; 80307; 81001; 82962; 83036; 83605; 84702; 85025; 85379; 85610; 85730; 87040; 93970; 96361; 96365; 96375; 96376; G0378; J1815; J2405; J2470; J2543

== ENCOUNTER 2024-12-08 17:51 | Emergency (ER) | payer MEDICAID ==
[~2024-12-08] VITALS: Ht 160 cm; Wt 72.7 kg
[~2024-12-08 17:51] MED LIST changes: +AMIT-256 PO; +AZIT-43 PO; -BACL10TA PO; -CEPH500C PO; -FENT25DI2 TD; +INSU1INJ15 SC; -JANUVIA PO; -MORP15TA PO; -OMEP20TA44; +OXCA300T50; +PRIM50TA5 PO
[2024-12-08 18:27] LABS: Basophils # (auto) 0.1 10 ^3/uL (0-0.2); Eosinophils # (auto) 0.2 10 ^3/uL (0-0.8)
[2024-12-08 18:29] LABS: Eosinophils % (auto) 1.3 % (0.0-7.0); Hematocrit 32.3 % (36.0-46.0); Hemoglobin 9.3 g/dL (12.2-16.2); Lymphocytes # (auto) 5.4 10 ^3/uL (0.4-5.4); Lymphocytes % (auto) 40.7 % (10.0-50.0); Mean Corpuscular Hemoglobin 16.5 pg (28.0-32.0); Mean Corpuscular Hgb Conc. 28.8 g/dL (32.0-36.0); Mean Corpuscular Volume 57.2 fL (80.0-100.0); Monocytes # (auto) 0.9 10 ^3/uL (0-1.3); Neutrophils # (auto) 6.6 10 ^3/uL (1.6-8.6); Nucleated Red Blood Cells % 0.2 %; Platelet Count (auto) 292 10^3/uL (140-450); Red Blood Cells 5.64 10^6/uL (4.0-5.20); Red Cell Distribution Width 19.4 % (11.8-14.3); White Blood Cell 13.3 10^3/uL (4.4-10.8)
--- NOTE | 2024-12-08 18:36 | ED.PDOC ---
HPI Comments 44y F who presents to the ED via EMS for chief complaint of chest pain. Pt had the following ED course: - pt states she has been having chest pain, shortness of breath, and dizziness for the past 2 weeks. - pt states yesterday she had a seizure activity and states she was conscious through out and states her whole body had shaking like movements throughout and states it was witnessed by pt daughter - pt did not lose consciousness during seizure and denies any associated fall/trauma and no noted oral trauma or incontinence during seizure - pt states since seizure, she has been having whole body pains and states despite taking her daily dilaudid, she continued to have until today and called EMS. Patient states compliance with the her seizure medications as well - pt now in the ED, states she is having chest pain with noted chest pain with deep inspiration and "while smoking cigarettes" - pt otherwise states she has history of chronic pain syndrome and DJD and states she takes dilaudid every 4 hours - pt denies any other symptoms at this time PMH: seizures, anemia, DM, neuropathy, DJD, chronic pain, depression, PSH: hip, femur and hand surgery, cholecystectomy, appendectomy. Allergies: iron, metformin Social history: endorses tobacco use, denies ETOH use, endorses drug use (marijuana) HPI: Poor Historian. REVIEW OF SYSTEMS: CONSTITUTIONAL: Denies acute: fever, diaphoresis, chills, generalized weakness. HEAD: Denies acute: headache, photophobia Eyes: Denies acute: Double vision, vision loss, eye pain, eye discharge. EARS: Denies acute: tinnitus, hearing loss, ear discharge, ear pain, THROAT: Denies acute: sore throat, swelling, difficulty swallowing , pain with swallowing, change in voice. NECK: Denies acute: neck pain, neck swelling, stiff neck. HEART: Denies acute : palpitations, LUNGS: Denies acute: wheezing, cough, hemoptysis ABDOMEN: Denies acute: abdominal pain, Nausea, Vomiting, diarrhea, melena , hematemesis, hematochezia SKIN: Denies acute: rash, redness, lesions, itchiness. EXTREMITIES: Denies acute: calf pain, numbness, tingling, weakness, denies pain in extremity. Denies acute: Low back pain. Neuro: Denies acute: focal neurological deficit, motor or sensory focal neurological deficit, confusion, change in mental status, loss of bowel or bladder function, cauda equina like symptoms. : Denies acute: dysuria, hematuria, flank pain, increase in urinary frequency. PSYCH: Denies acute: hallucination, suicidal ideation, homicidal ideation. FEMALE: Denies acute: abnormal vaginal bleeding, foul odor, unusual discharge. PHYSICAL EXAM: General: no acute distress, awake and alert. Head: normocephalic, atraumatic. Neck: supple, trachea is midline, no swelling. Throat: Normal phonation. Eyes:, no erythema, no purulent discharge, no proptosis, no icterus. Heart: regular rate, regular rhythm, no significant murmur appreciated. Lungs: no apparent respiratory distress, Able to speak in full sentences. No wheezing, no rhonchi, no crackles. No stridors Clear to auscultation bilaterally. Abdomen: non tender to palpation, non distended, soft, no guarding, no rebound, + bowel sounds. Neuro: Awake, Alert, oriented to name, self, situation, follows commands GCS=15. Speech is normal. Skin: no petechia, no purpura, no cyanosis, non-pale, not jaundice. Lower extremities: --trace bilateral - Pitting edema no deformity, no focal swelling, no calf TTP. Makes eye contact. moves all four extremities. Face: no apparent facial droop. ED COURSE: Chief Complaint: chest pain Time Seen by MD: 18:30 Primary Care Provider: GOMEZ Reviewed Notes: Nurses Notes, Allergies Allergies: Coded Allergies: Ketorolac Tromethamine (Verified Allergy, Severe, 12/25/22) throat swelling and hives reproted by patient Ibuprofen (Verified Allergy, Mild, 03/10/11) Iron (Verified Allergy, Mild, 03/10/11) Iodine (Verified Allergy, Unknown, 12/04/19) Metformin (Verified Allergy, Unknown, 12/04/19) Home Meds Active Scripts Azithromycin (Azithromycin) 250 Mg Tab, 250 MG PO DAILY MDD 500 for 5 Days, #6 TAB 0 Refills 2 TABLETS ORALLY ON DAY ONE, THEN 1 TABLET ORALLY DAILY FOR 4 DAYS Prov:ARUNA ADAIR NP 04/28/24 Apixaban Base (ELIQUIS) 2.5 Mg Tab, 2.5 MG PO BID for 35 Days, #70 TAB Prov:ARUNA ADAIR Galen DELICATESSEN DEPARTMENT MANAGER 01/28/23 Insulin Glargine (Lantus Solostar) 100 Unit/Ml Inj, 10 UNIT SC QPM, #10 INJ Prov:PATY ROJAS MD 10/04/22 Reported Medications Oxcarbazepine (OXTELLAR XR) 300 Mg Tab, 600 04/27/24 Insulin Regular (Human) (Humulin R U-500 Kwikpen) 500 Unit/Ml Inj, UNIT SC 04/26/24 Primidone (MYSOLINE TABLET) 50 Mg Tb, 100 MG PO BID, TAB 04/26/24 Pregabalin (Pregabalin) 200 Mg Cap, 200 MG PO, CAP 04/26/24 Amitriptyline HCl (Amitriptyline Hydrochlori) 50 Mg Tab, 2 TAB PO 04/26/24 Clonazepam (Clonazepam) 1 Mg Tab, 1 TAB PO TID PRN for SEIZURES 10/03/22 Glimepiride (Glimepiride) 4 Mg Tab, 4 MG OR BID 06/29/12 Information Source: Patient, Emergency Med Personnel Mode of Arrival: EMS Brought in by: EMS Past Medical History PAST MEDICAL HISTORY: Anemia, Arthritis, Depression, DM, Hypotension, Seizures Surgical History: Appendectomy, Cholecystectomy 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 Was a procedure done?: No CP Differential Dx Differential Diagnosis: N/A Differential Diagnosis: Other (Ddx include but not limitied to gastritis, musculoskeletal pain, radiculopathy, atypical chest pain, dissection, aneurysm, ACS, unstable angina, hiatal hernia, GERD, anxiety, costochondritis, PE, pneumothroax, neoplasm, cardiac ischemia, drug abuse, anemia.) X-Ray, Labs, Meds, VS Vital Signs Date Time Temp Pulse Resp B/P (MAP) Pulse Ox O2 Delivery O2 Flow Rate FiO2 12/08/24 19:30 74 14 97 Room Air* 0 21 12/08/24 19:30 97.6 74 14 115/68 (84) 97 97.6 12/08/24 18:50 98.2 84 11 115/69 (84) 98 98.2 12/08/24 18:38 Room Air* 0 21 12/08/24 18:03 97.9 84 16 127/81 (96) 99 97.9 12/08/24 17:56 86 Lab Test 12/08/24 18:55 12/08/24 18:00 Range/Units Lactic Acid Level 1.7 0.4-2.0 mmol/L Troponin I High Sensitivity < 3 L < 3 L </=34 ng/L White Blood Count 13.3 H 4.4-10.8 10^3/uL Red Blood Count 5.64 H 4.0-5.20 10^6/uL Hemoglobin 9.3 L 12.2-16.2 g/dL Hematocrit 32.3 L 36.0-46.0 % Mean Corpuscular Volume 57.2 L 80.0-100.0 fL Mean Corpuscular Hemoglobin 16.5 L 28.0-32.0 pg Mean Corpuscular Hemoglobin Concent 28.8 L 32.0-36.0 g/dL Red Cell Distribution Width 19.4 H 11.8-14.3 % Platelet Count 292 140-450 10^3/uL Mean Platelet Volume 8.2 6.9-10.8 fL Neutrophils (%) (Auto) 50.0 37.0-80.0 % Lymphocytes (%) (Auto) 40.7 10.0-50.0 % Monocytes (%) (Auto) 7.0 0.0-12.0 % Eosinophils (%) (Auto) 1.3 0.0-7.0 % Basophils (%) (Auto) 1.0 0.0-2.0 % Neutrophils # (Auto) 6.6 1.6-8.6 10 ^3/uL Lymphocytes # (Auto) 5.4 0.4-5.4 10 ^3/uL Monocytes # (Auto) 0.9 0-1.3 10 ^3/uL Eosinophils # (Auto) 0.2 0-0.8 10 ^3/uL Basophils # (Auto) 0.1 0-0.2 10 ^3/uL Nucleated Red Blood Cells 0.2 % Platelet Estimate Adequate Large Platelets Few Hypochromasia (manual) Marked Anisocytosis (manual) Slight Microcytosis Marked D-Dimer, Quantitative 0.86 H 0.0-0.49 mg/L FEU Sodium Level 138 136-145 mmol/L Potassium Level 3.8 3.5-5.1 mmol/L Chloride Level 105 98-107 mmol/L Carbon Dioxide Level 25 20-31 mmol/L Anion Gap 8 5-15 Blood Urea Nitrogen 11 9-23 mg/dL Creatinine 0.94 0.550-1.02 mg/dL Glomerular Filtration Rate Calc 77 >90 mL/min BUN/Creatinine Ratio 11.7 10.0-20.0 Serum Glucose 184 H 74-106 mg/dL Calcium Level 9.6 8.7-10.4 mg/dL Magnesium Level 2.2 1.6-2.6 mg/dL Total Bilirubin 0.2 0.2-1.0 mg/dL Aspartate Amino Transferase (AST) 18 13-40 U/L Alanine Aminotransferase (ALT) 15 7-40 U/L Alkaline Phosphatase 108 46-116 U/L Creatine Kinase 60 34-145 U/L B-Type Natriuretic Peptide 6.28 0-100 pg/mL Total Protein 7.3 5.7-8.2 g/dL Albumin 4.7 3.2-4.8 g/dL Current Medications Medications (Trade) Dose Ordered Sig/Param Route Start Time Stop Time Status Last Admin Sodium Chloride 1,000 ml @ 1,000 mls/hr Q1H ONCE IV 12/08/24 18:15 12/08/24 19:14 DC 12/08/24 19:03 [place] [id number] Ph: [phone] DIAGNOSTIC IMAGING Diagnostic Imaging Report : [id number] Signed PATIENT: JULIEN ANDERSENCCT: [id number] UNIT: [id number] : 1980 LOC: ER ROOM / BED: / AGE / SEX: 44 / F ADM STATUS: REG ER SERVICE 1802 ORDERING PHYSICIAN: RU HOSKINS DO PROCEDURE(s): CXRP - CHEST PORTABLE REASON: cp ORDER NUMBER(s): [id number], ACCESSION NUMBER(s): [id number] CHEST RADIOGRAPH Indication: cp Technique: Single frontal view of the chest was obtained Comparison: XY CHEST PORTABLE on DOS: 01/25/23, XY CHEST XRAY 1 VIEW on DOS: 12/25/22, CHEST PORTABLE on DOS: 12/14/19 FINDINGS: Lines and Tubes: None Lungs: No focal consolidation. Hazy opacification of the bilateral upper lung zones which appears to be from overlying structures. Pleura: No effusion. No pneumothorax. Cardiomediastinal contours: Unremarkable Bones: No acute osseous abnormality. IMPRESSION: No acute cardiopulmonary disease. ATED BY: VALERIA WOODS DO DICTATED DATE/TIME: 12/08/241924 SIGNED BY: VALERIA WOODS DO SIGNED DATE/TIME: 12/08/241924 CC: Time of 1ST Reevaluation: 00:00 (Patient left AMA) Reevaluation 1ST: N/A Patient Education/Counseling: Diagnosis, Treatment Family Education/Counseling: No Family Present Comments Patient is on Dilaudid daily for chronic pain Patient was allergic to iodine. Unable to obtain a CTA angiogram of the chest. Patient presented with the above HPI.-cardiac-----workup was initiated. patient was found with the above mentioned diagnosis. the following medications were ordered: please refer to order lists of meds and tests obtained by myself Dr. Hoskins. Patient ED course and VS have been stabilized. Patient has been reassessed in the ED and remained in a stable condition. Pertinent incidental findings were discussed with the patient and/or family. Patient/family voices understanding and is agreeable with plan. Patient has been observed in the ED adequate length of time to insure improvement/stability. Escalation of care considered: Consideration of escalation to observation or admission Patient was ADMITTED to the medicine team for further evaluation and treatment of their presentation. However I was informed that the patient left against medical advice. All the reports of any imaging studies that were ordered by myself were reviewed by myself. Departure 1 Departure Time of Disposition: 19:32 Impression: Primary Impression: Chest pain Additional Impressions: Elevated d-dimer Dyspnea Anemia Disposition: ADMITTED INPATIENT Admit to: [facility] Condition: Guarded Discharged With: Self Critical Care Note Critical Care Time?: No Heart Score Heart Score: Heart Score Response (Comments) Value History Slightly Suspicious 0 EKG Normal 0 Age <45 0 Risk Factors 1 or 2 risk factors 1 Troponin Normal limit 0 Total 1 I personally scribed for RU HOSKINS DO ([facility]) on 12/08/24 at 18:36. Electronically submitted by Selin Leon ([facility] I personally scribed for RU [facility]OSKINS DO ([facility] on 12/08/24 at 18:50. Electronically submitted by Selin Leon ([facility] I personally scribed for RU HOSKINS DO ([facility]) on 12/08/24 at 21:44. Electronically submitted by Selin Leon ([facility] RU HOSKINS DO Dec 08, 2024 18:36
[2024-12-08 18:40] LABS: Alanine Aminotransferase 15 U/L (7-40); Albumin 4.7 g/dL (3.2-4.8); Alkaline Phosphatase 108 U/L (46-116); Anion Gap 8 (5-15); Aspartate Aminotransferase 18 U/L (13-40); BUN/Creatinine Ratio 11.7 (10.0-20.0); Blood Urea Nitrogen 11 mg/dL (9-23); Calcium 9.6 mg/dL (8.7-10.4); Carbon Dioxide 25 mmol/L (20-31); Chloride 105 mmol/L (98-107); Creatine Kinase IFCC 60 U/L (34-145); Magnesium 2.2 mg/dL (1.6-2.6); Potassium 3.8 mmol/L (3.5-5.1); Sodium 138 mmol/L (136-145); Total Protein 7.3 g/dL (5.7-8.2)
--- NOTE | 2024-12-08 18:52 | ECG ---
[facility] Test Date: 2024-12-08 Test Time: 17:56:13 Pat Name: GARY ANDERSEN Department: ER Room: Gender: F Leader Assembler: : 1980 Requested By: IRISH BATISTA Order Number: [id number] Reading MD: Az Chavarria Measurements Intervals [place] Rate: 86 P: 39 MO: 133 QRS: -17 QRSD: 81 T: 47 QT: 385 QTc: 461 Interpretive Statements Sinus rhythm Borderline left axis deviation Electronically Signed On 12-10-2024 17:42:29 PDT by Az Chavarria Please click the below link to view image of tracing.
[2024-12-08] MEDS: SODIUM CHLORIDE 0.9% 1,000 ML IV ONE (19:03)
[2024-12-08 19:08] LABS: Bilirubin, Total 0.2 mg/dL (0.2-1.0); Glucose 184 mg/dL (74-106)
--- NOTE | 2024-12-08 19:28 | DVH ---
CHEST RADIOGRAPH Indication: cp Technique: Single frontal view of the chest was obtained Comparison: XY CHEST PORTABLE on DOS: 01/25/23, XY CHEST XRAY 1 VIEW on DOS: 12/25/22, CHEST PORTABLE on DOS: 12/14/19 FINDINGS: Lines and Tubes: None Lungs: No focal consolidation. Hazy opacification of the bilateral upper lung zones which appears to be from overlying structures. Pleura: No effusion. No pneumothorax. Cardiomediastinal contours: Unremarkable Bones: No acute osseous abnormality. IMPRESSION: No acute cardiopulmonary disease.
[2024-12-08 19:30] VITALS: BP 115/68; PULSE 74; RESP 14; TEMP 97.6; O2SAT 97
[2024-12-08] MEDS ORDERED: ASPirin-EC 325mg tab PO ONE (19:45)
[2024-12-08] MEDS ORDERED: NITROGLYCERIN 0.4 MG SL TAB SL ONE (19:45)
[2024-12-08 19:54] LABS: Anisocytosis Slight; Hypochromia Marked; Large Platelets FEW; Platelet Estimate Adequate
== END 2024-12-08 19:52 | disposition left against medical advice (07) ==
LOC: EDBD 17:51 → ER 17:51 → EDUNIT# 17:51 → ER 19:52
DX: R07.9 Chest pain, unspecified (principal); R06.00 Dyspnea, unspecified; R79.89 Other specified abnormal findings of blood chemistry; D64.9 Anemia, unspecified; R06.02 Shortness of breath; R42 Dizziness and giddiness; F32.A Depression, unspecified; F17.210 Nicotine dependence, cigarettes, uncomplicated; M19.90 Unspecified osteoarthritis, unspecified site; E11.9 Type 2 diabetes mellitus without complications; Z90.49 Acquired absence of other specified parts of digestive tract; Z98.890 Other specified postprocedural states; Z79.01 Long term (current) use of anticoagulants; Z79.891 Long term (current) use of opiate analgesic; Z88.6 Allergy status to analgesic agent; Z88.8 Allergy status to other drugs, medicaments and biological substances; Z91.041 Radiographic dye allergy status
CPT/HCPCS: 36415; 36600; 71045; 80053; 82550; 82805; 83605; 83735; 83880; 84484; 85025; 85379; 93005; 96360; 99285; J7030